=== PATIENT | female | born 1990 | race Caucasian/White ===

== ENCOUNTER 2016-05-15 16:52 | Outpatient (CLI) | payer MEDICAID ==
[~2016-05-15] VITALS: Ht 165.1 cm; Wt 54.9 kg
[~2016-05-15 16:52] MED LIST: BCP; FERR-57 PO; FRS325T PO; HYDR-3583 PO; ONDAN4ODT PO; OXYC1TAB87 PO; PNT40TEC PO; PREN1TAB39 PO; SPRIN
[2016-05-15] MEDS ORDERED: FLU TRIvalent (5 YOA+) 2016-17 (AFLURIA) 0.5 ML IM ONE (17:45)
[2016-05-15 19:27] VITALS: BP 129/71
[2016-05-16 03:38] VITALS: BP 87/51
[2016-05-16 05:18] VITALS: BP 90/54
[2016-05-16 07:40] VITALS: BP 111/66
[2016-05-16 08:40] VITALS: BP 112/73
--- NOTE | 2016-05-18 15:33 | Physician Query-Final Dx ---
AYDE GEE 05/18/16 1533: Clinic Account Progress/Dx Physician Query: Please give diagnosis Date of Service May 15, 2016 at 16:52 ALAYNA PONCE MD 05/19/162058: Clinic Account Progress/Dx DIAGNOSIS: Diagnosis Abdominal pain Contractions YADE GEE May 18, 2016 15:33 ALAYNA PONCE MD May 19, 2016 20:59
== END 2016-05-16 09:15 ==
LOC: LDRP 16:52 → WSo 16:52
PROVIDERS: ATTEND Family Medicine
DX: O47.1 False labor at or after 37 completed weeks of gestation (principal); Z3A.37 37 weeks gestation of pregnancy; Z23 Encounter for immunization
CPT/HCPCS: 99214

== ENCOUNTER 2016-05-27 09:59 | Inpatient (IN) | payer MEDICAID ==
[2016-05-27] VITALS (11 sets, daily range): BP systolic 97–125; BP diastolic 58–79
[~2016-05-27] VITALS: Ht 165.1 cm; Wt 55.8 kg
[2016-05-27] MEDS ORDERED: D5 LR IV SOLUTION 1,000 ML IV SCH (10:30)
[2016-05-27 10:36] LABS: BASOPHILS % (AUTO) 0 % (0-10); EOSINOPHILS # (AUTO) 0.1 10^3/uL (0.0-0.3); EOSINOPHILS % (AUTO) 1 % (0-10); LYMPHOCYTES # (AUTO) 2.3 X 10^3 (1.0-4.0); LYMPHOCYTES % (AUTO) 21 % (12-44); MEAN CORPUSCULAR HEMOGLOBIN 26 PG (25-34); MEAN CORPUSCULAR HGB CONC 33 G/DL (32-36); MEAN CORPUSCULAR VOLUME 76 FL (80-99); MEAN PLATELET VOLUME 11.6 FL (7.4-10.4); MONOCYTES # (AUTO) 0.6 X 10^3 (0.0-1.0); MONOCYTES % (AUTO) 5 % (0-12); NEUTROPHILS # (AUTO) 8.1 X 10^3 (1.8-7.8); NEUTROPHILS % (AUTO) 73 % (42-75); PLATELET COUNT 183 10^3/uL (130-400); RED BLOOD COUNT 4.54 10^6/uL (4.35-5.85); WHITE BLOOD COUNT 11.1 10^3/uL (4.3-11.0)
--- NOTE | 2016-05-27 10:54 | History & Physical-OB ---
OB - Chief Complaint & HPI Date Date of Admission: Date of Admission: May 27, 2016 at 10:35 Chief Complaint/History OB-Reason for Admission/Chief: Onset of Labor Hx : 3 Hx Para: 2 Expected Date of Delivery: May 31, 2016 Gestational Age in Weeks: 39 Gestational Age in Days: 3 Admission Nurse Assessment Rev: Yes History of Labs GBS negative Allergies and Home Medications Allergies Coded Allergies: No Known Drug Allergies (Unverified , 01/30/10) Home Medications Ondansetron Hcl 4 Mg Tab 4 MG PO Q6H PRN PRN (Reported) Vits W-Ca,Fe,Fa(<1MG) 1 Each Tablet 1 EACH PO DAILY (Reported) OB - History Hx of Present Care: Yes Ultrasounds: Normal mid trimester US Obstetrical Complications: None Medical Complications: None Obstetrical History Hx Termination: No Hx Multiple Gestation: No Hx Stillbirth: No Hx Complication: No Hx Induced Hypertens: No Hx Maternal Gestational Diabet: No Delivery History Hx Dystocia: No Hx Large For Gestational Age I: No Hx Small for Gestational Age I: No Hx Section: No Hx Vaginal Delivery Post C-Sec: No Hx Blood Disorders: No Patient Past Medical History No chronic medical problems Immunizations Date of Influenza Vaccine: Dec 14, 2015 OB - Admission Exam Physical Exam HEENT: Moist Membranes Lungs: Clear Abdomen: Gravid Cervical Dilatation: 6cm Effacement: 75% Station: -2 Heart Rate: 140's Accelerations: Accelerations Present Short Term Variability: Present Contractions on Admission: < 5 Minutes Apart Intensity: Moderate Labs Laboratory Tests Test 05/27/16 10:16 Range/Units Basophils # (Auto) 0.0 0.0-0.1 10^3/uL Basophils (%) (Auto) 0 0-10 % Eosinophils # (Auto) 0.1 0.0-0.3 10^3/uL Eosinophils (%) (Auto) 1 0-10 % Hematocrit 35 35-52 % Hemoglobin 11.6 11.5-16.0 G/DL Lymphocytes # (Auto) 2.3 1.0-4.0 X 10^3 Lymphocytes (%) (Auto) 21 12-44 % Mean Corpuscular Hemoglobin 26 25-34 PG Mean Corpuscular Hemoglobin Concent 33 32-36 G/DL Mean Corpuscular Volume 76 L 80-99 FL Mean Platelet Volume 11.6 H 7.4-10.4 FL Monocytes # (Auto) 0.6 0.0-1.0 X 10^3 Monocytes (%) (Auto) 5 0-12 % Neutrophils # (Auto) 8.1 H 1.8-7.8 X 10^3 Neutrophils (%) (Auto) 73 42-75 % Platelet Count 183 130-400 10^3/uL Red Blood Count 4.54 4.35-5.85 10^6/uL Red Cell Distribution Width 14.0 10.0-14.5 % White Blood Count 11.1 H 4.3-11.0 10^3/uL OB - Assessment/Plan/Diagnosis Assessment Assessment: active labor (at 39w3d) Plan Plan: Other (AROM) TERESITA LAYTON MD May 27, 2016 10:54
[2016-05-27] MEDS ORDERED: OXYTOCIN/NORMAL SALINE 500 ML IV ONE (11:02)
[2016-05-27] MEDS ORDERED: BUTORPHANOL INJ 2 MG/ML (STADOL) VIAL IV NR (11:15)
[2016-05-27] MEDS: OXYTOCIN/NORMAL SALINE 500 ML IV SCH ×2 (11:32→12:06)
--- NOTE | 2016-05-27 11:51 | OB Labor & Delivery Record ---
L&D History Date of Service Date of Service: May 27, 2016 History Expected Date of Delivery: May 31, 2016 Gestational Age in Weeks: 39 Hx : 3 Hx Para: 2 Complications Events: Routine care Operative Indications (Cesarea: N/A-Vaginal Delivery Intrapartal Events: None L&D Stage1 Stage One Onset of Labor - Date: May 27, 2016 Onset of Labor - Time: 11:00 Monitors and Tracing Monitor Mode: External Monitor Accelerations: Uniform Monitor Decelerations: None Secondary Special Education Teacher Variability: Average (6-10) Short Term Variability: Present Presentation: Vertex Signs of Distress by FHT Signs of Distress no Rupture of Membranes Spontaneous Ruture of Membrane: No Amniotic Membrane Rupture Time: 11:20 Amniotic Membrane Fluid Desc.: Clear Induction/Anesthesia Medications Stadol 1mg x 1 dose L&D Stage2 Stage Two Stage II Date: May 27, 2016 Stage II Time: 11:32 Monitors and Tracing Monitor Mode: Internal Monitor Accelerations: Uniform Monitor Decelerations: None Secondary Special Education Teacher Variability: Average (6-10) Position: Left Occiput Anterior Presentation: Vertex Signs of Distress by FHT Signs of Distress no Cord Descript/Complications Cord Vessel Description: 3 Vessels Delivery Type Infant Delivery Method: Spontaneous Vaginal Anterior Shoulder: Left Episiotomy/Perineal Laceration Laceraction(s)/Extensions: No Condition of Delivery 1 minute Comment: 8 5 minute Comment: 9 Condition of Infant Condition of Infant: Living Exam: No Observed Abnormalities Resuscitation Resuscitation: N/A - Spontaneous Resp L&D Stage3 Stage Three Stage III Date: May 27, 2016 Stage III Time: 11:36 Pictocin Pitocin ml/hr: 125 Placenta Delivery Placenta Delivery: Spontaneous Delivery Summary Summary Vaginal blood loss >500ml: No 250cc Condition of Delivery Examined: Cervix Examined Post Hemorrhage: No TERESITA LAYTON MD May 27, 2016 11:50
[2016-05-27] MEDS ORDERED: MEASLES,MUMPS,RUBELLA 1 EA INJ SQ ONE (12:00)
[2016-05-27] MEDS ORDERED: WITCH HAZEL(TUCKS) 40 EA JAR TOP PRN (12:00)
[2016-05-27] MEDS ORDERED: BENZOCAINE/MENTHOL (DERMOPLAST) 56 ML CAN TP PRN (12:00)
[2016-05-27] MEDS ORDERED: HYDROcodone/APAP 5 MG/325 MG (LORTAB) TAB PO PRN (12:00)
[2016-05-27] MEDS ORDERED: TETANUS,DIPTH,PERTUSS P/F (BOOSTRIX) 0.5 ML VIAL IM ONE (12:00)
[2016-05-27] MEDS ORDERED: CATHETER FLUSH 10 ML SYR IV SCH (14:00)
[2016-05-27] MEDS: IBUPROFEN 600 MG (MOTRIN) TAB PO SCH ×2 (15:23→21:26)
[2016-05-28 01:54] VITALS: BP 98/59
[2016-05-28] MEDS: IBUPROFEN 600 MG (MOTRIN) TAB PO SCH ×2 (03:06→09:32)
[2016-05-28 06:12] VITALS: BP 106/63
[2016-05-28 06:40] LABS: BASOPHILS % (AUTO) 0 % (0-10); EOSINOPHILS # (AUTO) 0.1 10^3/uL (0.0-0.3); EOSINOPHILS % (AUTO) 1 % (0-10); LYMPHOCYTES # (AUTO) 2.2 X 10^3 (1.0-4.0); LYMPHOCYTES % (AUTO) 20 % (12-44); MEAN CORPUSCULAR HEMOGLOBIN 26 PG (25-34); MEAN CORPUSCULAR HGB CONC 33 G/DL (32-36); MEAN CORPUSCULAR VOLUME 77 FL (80-99); MEAN PLATELET VOLUME 11.5 FL (7.4-10.4); MONOCYTES # (AUTO) 0.7 X 10^3 (0.0-1.0); MONOCYTES % (AUTO) 6 % (0-12); NEUTROPHILS % (AUTO) 73 % (42-75); PLATELET COUNT 166 10^3/uL (130-400); RED BLOOD COUNT 3.85 10^6/uL (4.35-5.85); RED CELL DISTRIBUTION WIDTH 13.8 % (10.0-14.5)
[2016-05-28] MEDS ORDERED: PRENATAL VITAMIN 1 EA TAB PO SCH (07:00)
--- NOTE | 2016-05-28 08:10 | Discharge Summary ---
Diagnosis/Chief Complaint Date of Admission May 27, 2016 at 10:35 Date of Discharge May 28, 2016 Admission Diagnosis Admission Diagnosis 1. IUP at 39 weeks Discharge Diagnosis 1. IUP at 39 weeks Chief Complaint/HPI Chief Complaint/HPI 26 yo G3 now T3 who initially presented to L&D with uterine contractions at 39 weeks gestation. Discharge Summary-OBS Procedures 1. Discharge Physical Examination Allergies: Coded Allergies: No Known Drug Allergies (Unverified , 01/30/10) Vitals & I&Os Intake and Output 05/28/16 00:00 Intake Total 1000 ml Balance 1000 ml Vital Sign - Last 12Hours Date Time Temp Pulse Resp B/P Pulse Ox O2 Delivery O2 Flow Rate FiO2 05/28/16 06:12 98.2 62 16 106/63 97 Room Air General Appearance: No Acute Distress Respiratory: Clear to Auscultation Cardiovascular: Regular Rate Abdominal: Normal Bowel Sounds (with uterus firm) Hospital Course Patient presented to labor and delivery on May 27, 2016. Upon presentation she was noted to be dilated to 5 cm. Her EDC put her at 39 weeks gestation. She underwent amniotomy with placement of scalp electrode. She had contraction pattern and did not require any Pitocin augmentation. Ultimately she went on to deliver a term viable male. See labor and delivery summary for full details. Following delivery patient underwent routine care orders via [facility] women[facility] services. She had no complications during the remainder of her hospital stay through May 28, 2016. Her initial hemoglobin was noted to be 11.6 and postdelivery 9.9. Patient was asymptomatic with regards to any lightheadedness. She did not develop any chest pain or shortness of breath. She was felt ready for dismissal on May 28, 2016. She will follow up with Dr. Beasley at 6 weeks following delivery. Labs Laboratory Tests 05/27/16 10:16: Basophils # (Auto) 0.0, Basophils (%) (Auto) 0, Eosinophils # (Auto) 0.1, Eosinophils (%) (Auto) 1, Hematocrit 35, Hemoglobin 11.6, Lymphocytes # (Auto) 2.3, Lymphocytes (%) (Auto) 21, Mean Corpuscular Hemoglobin 26, Mean Corpuscular Hemoglobin Concent 33, Mean Corpuscular Volume 76L, Mean Platelet Volume 11.6H, Monocytes # (Auto) 0.6, Monocytes (%) (Auto) 5, Neutrophils # ( Auto) 8.1H, Neutrophils (%) (Auto) 73, Platelet Count 183, Red Blood Count 4.54 , Red Cell Distribution Width 14.0, White Blood Count 11.1H 05/28/16 06:18: Basophils # (Auto) 0.0, Basophils (%) (Auto) 0, Eosinophils # (Auto) 0.1, Eosinophils (%) (Auto) 1, Hematocrit 30L, Hemoglobin 9.9L, Lymphocytes # (Auto) 2.2, Lymphocytes (%) (Auto) 20, Mean Corpuscular Hemoglobin 26, Mean Corpuscular Hemoglobin Concent 33, Mean Corpuscular Volume 77L, Mean Platelet Volume 11.5H, Monocytes # (Auto) 0.7, Monocytes (%) (Auto) 6, Neutrophils # ( Auto) 8.0H, Neutrophils (%) (Auto) 73, Platelet Count 166, Red Blood Count 3.85L , Red Cell Distribution Width 13.8, White Blood Count 11.0 Discharge Instructions to patient/family Please see electonic discharge instructions given to patient. Discharge Medications Reviewed and agree with Discharge Medication list on patient's Discharge Instruction sheet Clinical Quality Measures DVT/VTE Risk/Contraindication: Risk Factor Score Per Nursin RFS Level Per Nursing on Admit: 1=Low/No VTE PPX TERESITA LAYTON MD May 28, 2016 08:10
--- NOTE | 2016-05-28 08:12 | Discharge Inst-Women's Service ---
Discharge Inst-Women's Serv Consults/Follow Up Additional Follow Up: Yes (with Dr Beasley in 6 weeks.) Activity Activity: Activity as Tolerated Driving Instructions: You May Drive NO SMOKING: NO SMOKING Nothing Inside Vagina: No [place] (for 6 weeks.) Diet Discharge Diet: No Restrictions Return to The Hospital For: as below Symptoms to Report to : Bleeding Excessive, Pain Increased, Fever Over 101 Degrees F, Vaginal Discharge Foul For Any Problems or Questions: Contact Your Physician TERESITA LAYTON MD May 28, 2016 08:12
[2016-05-28 09:33] VITALS: BP 109/70
== END 2016-05-28 13:10 | disposition home or self-care (01) | DRG 775 ==
LOC: WSo 09:59 → LDRP 09:59 → WSo 10:34 → LDRP 10:35
PROVIDERS: ADMIT Family Medicine; ATTEND Family Medicine
PROC: 10E0XZZ Delivery of Products of Conception, External Approach (ICD-10-PCS; principal; 2016-05-27)
DX: O80 Encounter for full-term uncomplicated delivery (principal); Z3A.39 39 weeks gestation of pregnancy; Z37.0 Single live birth
CPT/HCPCS: 36415; 85025; 86850; 86900; 86901; 99212

== ENCOUNTER → 2022-11-02 | Outpatient (CLI) | payer BC, MEDICAID | LOC: CARD 14:00 | PROVIDERS: ATTEND Family Medicine | DX: R79.89 Other specified abnormal findings of blood chemistry (principal) | CPT/HCPCS: 93306 ==

== ENCOUNTER 2022-12-05 04:57 | Emergency (ER) | payer BC ==
[2022-12-05 05:01] VITALS: BP 120/71
[2022-12-05 05:21] LABS: BASOPHILS % (AUTO) 0 % (0-10); EOSINOPHILS # (AUTO) 0.1 10^3/uL (0.0-0.3); EOSINOPHILS % (AUTO) 1 % (0-10); HEMATOCRIT 41 % (35-52); HEMOGLOBIN 13.6 g/dL (11.5-16.0); LYMPHOCYTES % (AUTO) 28 % (12-44); MEAN CORPUSCULAR HEMOGLOBIN 27 pg (25-34); MEAN CORPUSCULAR HGB CONC 33 g/dL (32-36); MEAN CORPUSCULAR VOLUME 80 fL (80-99); MEAN PLATELET VOLUME 9.9 fL (9.0-12.2); MONOCYTES # (AUTO) 0.5 10^3/uL (0.0-1.0); MONOCYTES % (AUTO) 7 % (0-12); NEUTROPHILS # (AUTO) 4.6 10^3/uL (1.8-7.8); NEUTROPHILS % (AUTO) 63 % (42-75); PLATELET COUNT 246 10^3/uL (130-400); WHITE BLOOD COUNT 7.2 10^3/uL (4.3-11.0)
[2022-12-05 05:24] LABS: BACTERIA,URINE NEGATIVE /HPF; BILIRUBIN,URINE NEGATIVE (NEGATIVE); CLARITY,URINE CLEAR; COLOR,URINE YELLOW; GLUCOSE, URINE (UA) NEGATIVE (NEGATIVE); KETONES,URINE NEGATIVE (NEGATIVE); LEUKOCYTE ESTERASE ,URINE NEGATIVE (NEGATIVE); NITRITE,URINE NEGATIVE (NEGATIVE); PROTEIN,URINE NEGATIVE (NEGATIVE); SQUAMOUS EPITHELIAL CELL,UR 0-2 /HPF; WBC,URINE 0-2 /HPF
[2022-12-05 05:34] LABS: ALBUMIN 3.7 GM/DL (3.2-4.5)
[2022-12-05 05:36] LABS: CALCIUM 8.9 MG/DL (8.5-10.1)
[2022-12-05 05:37] LABS: TOTAL PROTEIN 6.4 GM/DL (6.4-8.2)
[2022-12-05 05:39] LABS: BILIRUBIN,TOTAL 0.3 MG/DL (0.1-1.0)
[2022-12-05 05:41] LABS: CREATININE SERUM 0.63 MG/DL (0.60-1.30)
--- NOTE | 2022-12-05 05:43 | ED GU-Female ---
General Chief Complaint: - Reproductive Stated Complaint: VAG DISCHARGE/PAIN 14 WKS PREG Nursing Triage Note: Pt presents with c/o pelvic pain/cramping and swelling. She reports white rice like discharge that started yesterday, pt states she's been working a different shift and having swelling at the end of her shift. Pt reports she's 14 weeks 6 days . Source: patient Exam Limitations: no limitations History of Present Illness Date Seen by Provider: Dec 05, 2022 Time Seen by Provider: 04:58 Initial Comments 32yoF at 14w6d EGA by first trimester ultrasound coming in due to pelvic pressure and lower abdominal discomfort. Is been going on for little over a day. She has noticed some discharge that has large white specks in it. She is unsure if it has any scent to it. Denies any vaginal pain, dysuria, vaginal itching. Also denies any fever, nausea, vomiting, rash, or any other concerns. This is a surprise , she was on the Depo shot when she got in August. She is otherwise denying any other acute complaints. Allergies and Home Medications Allergies Coded Allergies: No Known Drug Allergies (Unverified , 01/30/10) Patient Home Medication List Home Medication List Reviewed: Yes Azithromycin (Azithromycin) 250 Mg Tablet, 250 MG PO DAILY Prescribed by: GOYO PADRON on 12/05/22547 Metronidazole (Metronidazole) 500 Mg Tablet, 500 MG PO BID Prescribed by: GOYO PADRON on 12/05/22 0548 Vits W-Ca,Fe,Fa(<1MG) () 1 Each Tablet, 1 EACH PO DAILY, (Reported) Entered as Reported by: HIRA CLARK on 02/02/10 1513 Review of Systems Review of Systems Constitutional: No fever EENTM: no symptoms reported Respiratory: no symptoms reported Cardiovascular: no symptoms reported Gastrointestinal: see HPI Genitourinary: see HPI Expected Date of Delivery: Jun 06, 2023 Musculoskeletal: no symptoms reported Skin: no symptoms reported Psychiatric/Neurological: No Symptoms Reported Endocrine: No Symptoms Reported Past Uqktuhl-Lvxqgx-Scssoo Hx Seasonal Allergies Seasonal Allergies: No Past Medical History Surgeries: Yes (teeth removal as child, third breast removed when 15) Respiratory: No Cardiac: No Neurological: No Expected Date of Delivery: Jun 06, 2023 Reproductive Disorders: No Female Reproductive Disorders: Denies Sexually Transmitted Disease: No HIV/AIDS: No Genitourinary: No Gastrointestinal: No Musculoskeletal: No Endocrine: No HEENT: No Loss of Vision: Denies Hearing Impairment: Denies Cancer: No Psychosocial: No Integumentary: No Blood Disorders: No Adverse Reaction/Blood Tranf: No Family Medical History Cardiovascular disease Grandparents (Grandpa) Cervical cancer Grandparents (Grandma) Colon cancer Grandparents (Grandpa) Diabetes mellitus Grandparents (Grandpa) Neoplasm Grandparents (Grandma) Physical Exam Vital Signs Vital Signs - First Documented 12/05/22 05:01 Temp 36.6 Pulse 86 Resp 16 B/P (MAP) 120/71 (87) Capillary Refill : Less Than 3 Seconds Height, Weight, BMI Height: 5'5.00" Weight: 123lbs. 0.8oz. [id number]; 20.5 BMI Method:Stated General Appearance: WD/WN, no apparent distress HEENT: PERRL/EOMI, normal ENT inspection, pharynx normal Neck: non-tender, full range of motion, supple, normal inspection Cardiovascular: regular rate, rhythm, no edema, no murmur Respiratory: chest non-tender, lungs clear, normal breath sounds, no respiratory distress, no accessory muscle use Gastrointestinal: normal bowel sounds, soft; No distended, No guarding, No rebound; tenderness Genital/Rectal: other (Normal-appearing cervix with no cervical motion tenderness, copious amounts of white discharge) Back: normal inspection, no CVA tenderness Extremities: normal range of motion, non-tender, normal inspection, no pedal edema, no calf tenderness, normal capillary refill Neurologic/Psychiatric: no motor/sensory deficits, alert, normal mood/affect Skin: normal color, warm/dry Progress/Results/Core Measures Suspected Sepsis SIRS Temperature: Pulse: 86 Respiratory Rate: 16 Laboratory Tests 12/05/22 05:16: White Blood Count 7.2 Blood Pressure 120 /71 Mean: 87 Laboratory Tests 12/05/22 05:16: Creatinine 0.63, Platelet Count 246, Total Bilirubin 0.3 Results/Orders Lab Results Laboratory Tests Test 12/05/22 05:06 12/05/22 05:16 Range/Units Urine Color YELLOW Urine Clarity CLEAR Urine pH 6.0 5-9 Urine Specific [place] 1.025 H 1.016-1.022 Urine Protein NEGATIVE NEGATIVE Urine Glucose (UA) NEGATIVE NEGATIVE Urine Ketones NEGATIVE NEGATIVE Urine Nitrite NEGATIVE NEGATIVE Urine Bilirubin NEGATIVE NEGATIVE Urine Urobilinogen 0.2 < = 1.0 MG/DL Urine Leukocyte Esterase NEGATIVE NEGATIVE Urine RBC (Auto) NEGATIVE NEGATIVE Urine RBC NONE /HPF Urine WBC 0-2 /HPF Urine Squamous Epithelial Cells 0-2 /HPF Urine Crystals NONE /LPF Urine Bacteria NEGATIVE /HPF Urine Casts NONE /LPF Urine Mucus SMALL H /LPF Urine Culture Indicated NO White Blood Count 7.2 4.3-11.0 10^3/uL Red Blood Count 5.11 3.80-5.11 10^6/uL Hemoglobin 13.6 11.5-16.0 g/dL Hematocrit 41 35-52 % Mean Corpuscular Volume 80 80-99 fL Mean Corpuscular Hemoglobin 27 25-34 pg Mean Corpuscular Hemoglobin Concent 33 32-36 g/dL Red Cell Distribution Width 13.2 10.0-14.5 % Platelet Count 246 130-400 10^3/uL Mean Platelet Volume 9.9 9.0-12.2 fL Immature Granulocyte % (Auto) 1 % Neutrophils (%) (Auto) 63 42-75 % Lymphocytes (%) (Auto) 28 12-44 % Monocytes (%) (Auto) 7 0-12 % Eosinophils (%) (Auto) 1 0-10 % Basophils (%) (Auto) 0 0-10 % Neutrophils # (Auto) 4.6 1.8-7.8 10^3/uL Lymphocytes # (Auto) 2.0 1.0-4.0 10^3/uL Monocytes # (Auto) 0.5 0.0-1.0 10^3/uL Eosinophils # (Auto) 0.1 0.0-0.3 10^3/uL Basophils # (Auto) 0.0 0.0-0.1 10^3/uL Immature Granulocyte # (Auto) 0.1 0.0-0.1 10^3/uL Sodium Level 137 135-145 MMOL/L Potassium Level 4.0 3.6-5.0 MMOL/L Chloride Level 107 98-107 MMOL/L Carbon Dioxide Level 20 L 21-32 MMOL/L Anion Gap 10 5-14 MMOL/L Blood Urea Nitrogen 14 7-18 MG/DL Creatinine 0.63 0.60-1.30 MG/DL Estimat Glomerular Filtration Rate 121 BUN/Creatinine Ratio 22 Glucose Level 91 70-105 MG/DL Calcium Level 8.9 8.5-10.1 MG/DL Corrected Calcium 9.1 8.5-10.1 MG/DL Total Bilirubin 0.3 0.1-1.0 MG/DL Aspartate Amino Transf (AST/SGOT) 17 5-34 U/L Alanine Aminotransferase (ALT/SGPT) 16 0-55 U/L Alkaline Phosphatase 36 L 40-136 U/L Total Protein 6.4 6.4-8.2 GM/DL Albumin 3.7 3.2-4.5 GM/DL My Orders Orders - GOYO PADRON MD Ua Culture If Indicated (12/05/22 05:00) Cbc With Automated Diff (12/05/22 05:07) Comprehensive Metabolic Panel (12/05/22 05:07) Neis Gt Dna Urine Test (12/05/22 05:12) Chlamydia Trachomatis Urine (12/05/22 05:12) Wet Prep (12/05/22 05:36) Ceftriaxone Iv/Im (Ceftriaxone Iv/Im) (12/05/22 05:45) Azithromycin Tablet (Azithromycin Tabl (12/05/22 05:45) Metronidazole Tablet (Metronidazole Tabl (12/05/22 05:45) Ondansetron Injection (Ondansetron Inj (12/05/22 05:45) Acetaminophen Tablet (Acetaminophen Ta (12/05/22 05:45) Medications Given in ED Current Medications Medications Dose Ordered Sig/Rahul Route Start Time Stop Time Status Last Admin Dose Admin Acetaminophen 1,000 mg ONCE ONCE PO 12/05/22 05:45 12/05/22 05:46 DC 12/05/22 05:45 1,000 MG Azithromycin 1,000 mg ONCE ONCE PO 12/05/22 05:45 12/05/22 05:46 DC 12/05/22 05:44 1,000 MG Ceftriaxone Sodium 1000 mg/ Sodium Chloride 50 ml @ 100 mls/hr ONCE ONCE IV 12/05/22 05:45 12/05/22 06:14 12/05/22 05:45 100 MLS/HR Metronidazole 500 mg ONCE ONCE PO 12/05/22 05:45 12/05/22 05:46 DC 12/05/22 05:43 500 MG Ondansetron HCl 4 mg ONCE ONCE IVP 12/05/22 05:45 12/05/22 05:46 DC 12/05/22 05:45 4 MG Vital Signs/I&O 12/05/22 05:01 Temp 36.6 Pulse 86 Resp 16 B/P (MAP) 120/71 (87) Capillary Refill : Less Than 3 Seconds Blood Pressure Mean: 87 Progress Note : Progress Note 32-year-old female with above history coming in due to vaginal discharge and suprapubic discomfort. ABCs were intact and vitals were stable on presentation. Physical exam with suprapubic discomfort and the after mentioned white copious vaginal discharge on pelvic. Urine GC and chlamydia sent. Urinalysis negative for infection. Wet prep from the discharge also sent. The swab was not put into the cervix, instead it was just collected just outside of the cervix for a wet prep. Given the lack of fever, lack of severe abdominal pain, lack of cervical motion tenderness, this is not consistent with pelvic inflammatory disease or tubo-ovarian abscess. Symptoms are consistent with likely a typical STI potentially versus BV. We will give her ceftriaxone, azithromycin, and Flagyl. I will prolong the course slightly given her and if this were early PID, could be detrimental. Wet prep was negative for clue cells or trichomoniasis. The patient on no intercourse until her testing comes back. Would not send empiric antibiotics for the significant other unless the results come back positive. I believe she is stable for discharge with outpatient follow-up. She was sent home with strict return precautions. Departure Impression Primary Impression: Suprapubic pain Additional Impressions: Vaginal discharge Qualified Codes: Z3A.14 - 14 weeks gestation of Disposition: HOME, SELF-CARE Condition: Stable Departure-Patient Inst. Decision time for Depature: 06:00 Referrals: [facility] (PCP/Family) Primary Care Physician Patient Instructions: Pelvic Pain (DC) Add. Discharge Instructions: It is possible this is due to an infection. Some infections just happen more commonly and randomly during . Antibiotics were sent to your pharmacy. If the results come back positive, we will call you with those results. Please abstain from rest until antibiotics are completed and we know for sure what the results are. Metronidazole will be twice a day, the next dose will be due tonight. The azithromycin will be once a day with the next dose due tomorrow. Scripts Azithromycin (Azithromycin) 250 Mg Tablet 250 MG PO DAILY for 6 Days, #6 TAB 0 Refills Prov: GOYO PADRON MD 12/05/22 Metronidazole (Metronidazole) 500 Mg Tablet 500 MG PO BID for 10 Days, #20 TAB 0 Refills Prov: GOYO PADRON MD 12/05/22 Work/School Note: Family Work Note, Patient Received Medical Care In the Emergency Department On: Dec 05, 2022 Patient Will Be Able to Return to Work/School On: Dec 06, 2022 Work Release Form Date Seen in the Emergency Department: Dec 05, 2022 Return to Work: Dec 06, 2022 Restrictions: No Restrictions GOYO PADRON MD Dec 05, 2022 05:43
[2022-12-05] MEDS ORDERED: ACETAMINOPHEN 500 MG TABLET PO ONE (05:45)
[2022-12-05] MEDS ORDERED: cefTRIAXone IV/IM 1,000 MG in NS (IVPB) 50 ML 50 ML IV ONE (05:45)
[2022-12-05] MEDS ORDERED: metroNIDAZOLE 500 MG TABLET PO ONE (05:45)
[2022-12-05] MEDS ORDERED: ONDANSETRON INJECTION 4 MG/2 ML (SDV) IVP ONE (05:45)
[2022-12-05] MEDS ORDERED: AZITHROMYCIN 250 MG TABLET PO ONE (05:45)
[2022-12-05] MEDS ORDERED: METR-145 PO (05:48)
[2022-12-05] MEDS ORDERED: AZIT250T12 PO (05:48)
== END 2022-12-05 06:04 | disposition home or self-care (01) ==
LOC: EDUNIT# 04:57 → ER 04:59
DX: O23.592 Infection of other part of genital tract in pregnancy, second trimester (principal); N89.8 Other specified noninflammatory disorders of vagina; O26.892 Other specified pregnancy related conditions, second trimester; R10.30 Lower abdominal pain, unspecified; Z3A.14 14 weeks gestation of pregnancy
CPT/HCPCS: 36415; 80053; 81000; 85025; 87210; 87491; 87591; 99284

== ENCOUNTER → 2023-01-11 | Outpatient (CLI) | payer BC ==
[~2023-01-11] MED LIST changes: +AZIT250T12 PO; +METR-145 PO
--- NOTE | 2023-01-11 15:21 | Diagnostic Imaging Report ---
INDICATION: Supervision of normal . Anatomy scan. TECHNIQUE: Multiple real-time grayscale images were obtained over the gravid uterus. COMPARISON: None FINDINGS: A single live intrauterine gestation is visualized in cephalic presentation. heart tones measure 138 bpm. The CHRISTIANA is normal measuring 12.1 cm. The placenta is posterior and not low lying. The kidneys, bladder, stomach, brain, four-chamber heart, three-vessel cord, spine, and cord insertion are visualized and have a normal appearance. The cervix is closed and measures 4.1 cm. Views of the adnexa are unremarkable. Biometrical measurements are as follows: Biparietal 5.26 cm, age 22 weeks 0 days. Head circumference 19.27 cm, age 21 weeks 4 days. Abdominal circumference 15.93 cm, age 21 weeks 1 days. Femur length 3.15 cm, age 19 weeks 6 days. Sonographic estimate age: 21 weeks 1 days. Sonographic estimated date of delivery: 05/23/2023. Estimated Weight: 366 gm (+/- 54 gm). LMP percentile: 73%. heart rate: 139 beats per minute. number: 1 of 1. IMPRESSION: 1. Single live intrauterine gestation measuring 21 weeks 1 day with an estimated due date of 05/23/2023. These are within range the clinical dates. 2. Unremarkable anatomy scan. No abnormalities are seen. Dictated by: Dictated on workstation # [id number]
== END ==
LOC: RAD 09:00
PROVIDERS: ATTEND Family Medicine
DX: Z34.92 Encounter for supervision of normal pregnancy, unspecified, second trimester (principal); Z3A.21 21 weeks gestation of pregnancy
CPT/HCPCS: 76805

== ENCOUNTER 2023-02-16 19:34 | Outpatient (CLI) | payer BC ==
[~2023-02-16] VITALS: Ht 160 cm; Wt 55.1 kg
[2023-02-16 19:49] VITALS: BP 120/77
[2023-02-16] MEDS ORDERED: SERT25TA PO (20:32)
[2023-02-16 20:52] LABS: BILIRUBIN,URINE NEGATIVE (NEGATIVE); CLARITY,URINE CLEAR; COLOR,URINE YELLOW; GLUCOSE, URINE (UA) NEGATIVE (NEGATIVE); KETONES,URINE NEGATIVE (NEGATIVE); LEUKOCYTE ESTERASE ,URINE NEGATIVE (NEGATIVE); NITRITE,URINE NEGATIVE (NEGATIVE); PROTEIN,URINE TRACE (NEGATIVE)
[2023-02-16 20:54] LABS: AMORPHOUS SEDIMENT,UR RARE AMOR URATES /LPF; BACTERIA,URINE TRACE /HPF; RBC,URINE 0-2 /HPF; WBC,URINE 0-2 /HPF
[2023-02-16] MEDS ORDERED: ACETAMINOPHEN 500 MG TABLET PO ONE (21:15)
--- NOTE | 2023-02-18 08:15 | Physician Query-Final Dx ---
STONE02/18/23 0815: Clinic Account Progress/Dx Physician Query: Please give diagnosis Please include # weeks gestation Date of Service Feb 16, 2023 at 19:34 KARLENE MORE MD 02/18/23 0936: Clinic Account Progress/Dx DIAGNOSIS: Diagnosis Pelvic pressure in Second trimester 25 weeks gestation ,MarFeb 18, 2023 08:15 KARLENE MORE MD Feb 18, 2023 09:36
== END 2023-02-16 21:19 | disposition home or self-care (01) ==
LOC: WSo 19:34 → LDRP 19:35 → WSo 21:19
PROVIDERS: ATTEND Family Medicine
DX: O99.891 Other specified diseases and conditions complicating pregnancy (principal); R10.2 Pelvic and perineal pain; Z3A.25 25 weeks gestation of pregnancy
CPT/HCPCS: 81000; 99213